=== PATIENT | male | born 1960 | race Caucasian/White ===

== ENCOUNTER 2021-01-29 19:55 | Emergency (ER) | payer MEDICARE, OTHER ==
[~2021-01-29 19:55] MED LIST: ALBUTEROL0.63 MG/3 INH; ASPIRIN CHEWABL81 MG PO; KLONOPIN0.5 MG PO; LISINOPRIL40 MG PO; LORTAB 5-325 M1 EACH PO; MEGESTROL400 MG/11 PO; NEURONTIN800 MG PO; OMEPRAZOLE20 MG PO; SYMBICORT 80-41 INHA INH
[2021-01-29 20:58] LABS: HEMOGLOBIN 10.7 gm/dl (14.0-17.5); RED BLOOD COUNT 3.48 M/UL (4.20-5.50); WHITE BLOOD COUNT 7.8 K/UL (4.5-11.0)
[2021-01-29 21:28] LABS: BUN/CREATININE RATIO 10 (0-10)
[2021-01-29] MEDS ORDERED: HYDROCHLOROTHIA25 MG PO (21:44)
== END 2021-01-29 22:00 | disposition home or self-care (01) ==
LOC: ER1 19:55
PROVIDERS: Preventive Medicine Occupational Medicine
DX: R07.89 Other chest pain (principal); R60.0 Localized edema; I10 Essential (primary) hypertension; J44.9 Chronic obstructive pulmonary disease, unspecified; F17.210 Nicotine dependence, cigarettes, uncomplicated; Z20.822 Contact with and (suspected) exposure to COVID-19
CPT/HCPCS: 0240U; 36600; 71045; 80053; 80307; 81001; 82550; 82553; 82803; 83690; 83874; 83880; 84484; 85025; 85652; 86140; 87086; 94760; 96374; 99285; G0480

== ENCOUNTER 2021-02-12 16:44 | Emergency (ER) | payer MEDICARE, OTHER ==
[~2021-02-12 16:44] MED LIST changes: +HYDROCHLOROTHIA25 MG PO
[2021-02-12 18:06] LABS: HEMOGLOBIN 12.7 gm/dl (14.0-17.5); RED BLOOD COUNT 4.13 M/UL (4.20-5.50); WHITE BLOOD COUNT 6.5 K/UL (4.5-11.0)
[2021-02-12 18:30] LABS: BUN/CREATININE RATIO 14 (0-10)
[2021-02-12 21:11] LABS: BORDETELLA PARAPERTUSSIS Not Detected (Not Detectd); BORDETELLA PERTUSSIS Not Detected (Not Detectd); CHLAMYDIA PNEUMONIAE Not Detected (Not Detectd); CORONAVIRUS HKU1 Not Detected (Not Detectd); CORONAVIRUS NL63 Not Detected (Not Detectd); CORONAVIRUS OC43 Not Detected (Not Detectd); CORONOAVIRUS 229E Not Detected (Not Detectd); HUMAN METAPNEUMOVIRUS Not Detected (Not Detectd); HUMAN RHINOVIRUS/ENTEROVIRUS Not Detected (Not Detectd); INFLUENZA A Not Detected (Not Detectd); INFLUENZA B Not Detected (Not Detectd); MYCOPLASMA PNEUMONIAE Not Detected (Not Detectd); PARAINFLUENZA VIRUS 1 Not Detected (Not Detectd); PARAINFLUENZA VIRUS 2 Not Detected (Not Detectd); PARAINFLUENZA VIRUS 3 Not Detected (Not Detectd); PARAINFLUENZA VIRUS 4 Not Detected (Not Detectd); RESPIRATORY SYNCYTIAL VIRUS Not Detected (Not Detectd)
[2021-02-12 22:22] LABS: SARS-CoV-2 NOT DETECTED (Not Detectd)
== END 2021-02-12 23:35 | disposition home or self-care (01) ==
LOC: ER1 16:44 → CDU 18:57 → ER1 18:57
PROVIDERS: Internal Medicine
DX: J44.9 Chronic obstructive pulmonary disease, unspecified (principal); M50.30 Other cervical disc degeneration, unspecified cervical region; M48.02 Spinal stenosis, cervical region; I95.9 Hypotension, unspecified; Z99.81 Dependence on supplemental oxygen; F12.90 Cannabis use, unspecified, uncomplicated; I10 Essential (primary) hypertension; F17.200 Nicotine dependence, unspecified, uncomplicated; Z87.442 Personal history of urinary calculi
CPT/HCPCS: 36600; 71045; 72125; 80053; 81001; 82550; 82553; 82803; 83605; 83690; 83874; 83880; 84484; 85025; 85610; 85730; 87040; 87633; 93005; 94640; 94664; 96374; 96375; 99285; J0696; J3370; Q9967; U0002

== ENCOUNTER 2021-04-27 16:32 | Emergency (ER) | payer MEDICARE, OTHER ==
[~2021-04-27 16:32] MED LIST changes: +CLONAZEPAM1 MG PO; +COMBIVENT RESPIM4 GM INH; +DOXYCYCLINE HY100 MG PO; +GABAPENTIN800 MG PO; +HYDROXYZINE PAM25 MG PO; +IPRAT-ALBUT 0.5-3 ML NEB; +MEDROL DOSEPAK 24 MG PO; +NITROGLYCERIN0.4 MG SL; +SUBOXONE 8 MG-1 EACH SL
[2021-04-27 17:04] LABS: HEMOGLOBIN 13.4 gm/dl (14.0-17.5); RED BLOOD COUNT 4.37 M/UL (4.20-5.50); WHITE BLOOD COUNT 11.1 K/UL (4.5-11.0)
[2021-04-27 17:28] LABS: BUN/CREATININE RATIO 17 (0-10)
== END 2021-04-27 23:55 | disposition home or self-care (01) ==
LOC: ER1 16:32
PROVIDERS: Physician Assistant
DX: R07.89 Other chest pain (principal); R06.02 Shortness of breath; J44.9 Chronic obstructive pulmonary disease, unspecified; I10 Essential (primary) hypertension; Z88.8 Allergy status to other drugs, medicaments and biological substances; Z20.822 Contact with and (suspected) exposure to COVID-19
CPT/HCPCS: 71045; 80053; 82550; 82553; 83874; 84484; 85025; 93005; 99285; U0002

== ENCOUNTER 2021-07-30 13:58 | Emergency (ER) | payer MEDICARE, OTHER ==
[2021-07-30 15:15] LABS: HEMOGLOBIN 13.2 gm/dl (14.0-17.5); RED BLOOD COUNT 4.17 M/UL (4.20-5.50); WHITE BLOOD COUNT 8.4 K/UL (4.5-11.0)
[2021-07-30 15:29] LABS: BUN/CREATININE RATIO 9 (0-10)
[2021-07-30] MEDS ORDERED: CEFUROXIME500 MG PO (17:43)
[2021-07-30] MEDS ORDERED: MEDROL4 MG PO (17:43)
== END 2021-07-30 17:52 | disposition home or self-care (01) ==
LOC: ER1 13:58
PROVIDERS: Preventive Medicine Occupational Medicine
DX: J44.1 Chronic obstructive pulmonary disease with (acute) exacerbation (principal); I10 Essential (primary) hypertension; E78.5 Hyperlipidemia, unspecified; F17.210 Nicotine dependence, cigarettes, uncomplicated
CPT/HCPCS: 36600; 71045; 80053; 82550; 82553; 82803; 83605; 83690; 83874; 83880; 84484; 85025; 85652; 86140; 93005; 96374; 96375; 99285; J0696; J2930; U0002

== ENCOUNTER 2021-08-26 13:41 | Emergency (ER) | payer MEDICARE, OTHER ==
[~2021-08-26 13:41] MED LIST changes: +CEFUROXIME500 MG PO; +MEDROL4 MG PO
== END 2021-08-26 16:00 | disposition left against medical advice (07) ==
LOC: ER1 13:41
DX: Z53.21 Procedure and treatment not carried out due to patient leaving prior to being seen by health care provider (principal)